=== PATIENT | female | born 1980 | race Hispanic/Latino ===

== ENCOUNTER 2019-05-25 | Emergency (ER) | payer MEDICAID ==
[~2019-05-25] MED LIST: DOCUSATE CAL240 MG PO; PRE-NATAL PO; TUMS500 MG PO
[2019-05-25 18:32] LABS: IMMATURE GRANULOCYTES 0.6 % (0.0-5.0); MEAN CELL VOLUME 88.6 fL CALC (80.0-100.0); MEAN CORPUSCULAR HGB 29.2 pG CALC (26.0-32.0); NEUT# 6.43 thou/uL (2.00-7.15); RED BLOOD COUNT 4.93 mill/uL (4.20-5.60); RED CELL DISTRI WIDTH 12.8 % (11.5-15.5)
[2019-05-25 18:33] LABS: HEMATOCRIT 43.7 % (37.0-47.0); HEMOGLOBIN 14.4 g/dl (12.0-16.0)
[2019-05-25 18:51] LABS: ALBUMIN 4.5 g/dL (3.2-5.0); ALKALINE PHOSPHATASE 70 u/l (38-126); ANION GAP 12 (6-22 (CALC)); BILIRUBIN, TOTAL 0.3 mg/dL (0.0-1.4); BUN 12 mg/dL (7-17); BUN/CREATININE RATIO 17 (12-20 (CALC)); CARBON DIOXIDE 27 mmol/l (22-30); CHLORIDE 103 mmol/l (95-108); CREATININE 0.7 mg/dL (0.5-1.0); GFR > 60 ML/MIN (>=60 (CALC)); GFR FOR AFR.AMER. > 60 ML/MIN (>=60 (CALC)); POTASSIUM 3.7 mmol/l (3.5-5.1); SGOT/AST 26 u/l (14-36); SODIUM 138 mmol/l (137-146); TOTAL PROTEIN 8.1 g/dL (6.3-8.2)
== END 2019-05-25 20:49 | disposition home or self-care (01) | DRG 313 ==
PROVIDERS: Family Medicine
DX: R07.9 Chest pain, unspecified (principal)

== ENCOUNTER 2019-10-14 12:49 | Emergency (ER) | payer MEDICAID ==
[~2019-10-14] VITALS: Ht 167.6 cm; Wt 82.0 kg
[2019-10-14 14:02] LABS: HEMATOCRIT 43.9 % (37.0-47.0); HEMOGLOBIN 13.7 g/dl (12.0-16.0); IMMATURE GRANULOCYTES 0.4 % (0.0-5.0); MEAN CELL VOLUME 89.6 fL CALC (80.0-100.0); MEAN CORPUSCULAR HGB CONC 31.2 g/dL CAL (32.0-36.0); NEUT# 3.02 thou/uL (2.00-7.15); RED BLOOD COUNT 4.9 mill/uL (4.20-5.60); RED CELL DISTRI WIDTH 12.7 % (11.5-15.5)
[2019-10-14 14:22] LABS: D-DIMER 0.24 mg/L (0.19-0.60)
[2019-10-14 14:27] LABS: PROTHROMBIN TIME 10.1 SECONDS (9.0-12.5)
[2019-10-14 14:28] LABS: HCG SERUM/URINE (NEG/POS) NEGATIVE (NEGATIVE)
[2019-10-14 14:35] LABS: ALBUMIN 4.1 g/dL (3.2-5.0); ALKALINE PHOSPHATASE 53 u/l (38-126); AMYLASE 103 u/l (30-110); ANION GAP 12 (6-22 (CALC)); BILIRUBIN, TOTAL 0.3 mg/dL (0.0-1.4); BUN 12 mg/dL (7-17); BUN/CREATININE RATIO 17 (12-20 (CALC)); CARBON DIOXIDE 25 mmol/l (22-30); CHLORIDE 105 mmol/l (95-108); CREATININE 0.7 mg/dL (0.5-1.0); GFR > 60 ML/MIN (>=60 (CALC)); GFR FOR AFR.AMER. > 60 ML/MIN (>=60 (CALC)); LIPASE 59 u/l (23-300); SGOT/AST 25 u/l (14-36); SODIUM 138 mmol/l (137-146); TOTAL PROTEIN 7.3 g/dL (6.3-8.2)
[2019-10-14] MEDS ORDERED: ZITHROMAX250 MG PO (15:50)
[2019-10-14] MEDS ORDERED: VENTOLIN HFA IN (15:50)
[2019-10-14] MEDS ORDERED: MEDDOSEPAK PO (15:50)
[2019-10-14 16:06] VITALS: BP 110/68
--- NOTE | 2019-10-18 16:14 | NUR ---
Notified patient of positive Covid results. Patient denies any symptoms. Advised her to quarantine untol contacted by [facility] and to return to ED with difficulty breathing or other urgent needs. Patient verbalized understanding.
== END 2019-10-14 16:14 | disposition home or self-care (01) ==
LOC: ED 12:49
DX: U07.1 COVID-19 (principal); J40 Bronchitis, not specified as acute or chronic